=== PATIENT | male | born 1960 | race Caucasian/White ===

== ENCOUNTER 2018-05-12 11:27 | Emergency (ER) | payer SELFPAY ==
[2018-05-12 11:35] VITALS: BP 143/77; PULSE 85; TEMP 98.4; BMI 25.5
[2018-05-12] MEDS ORDERED: FLUORESCEIN NA 1 EA STRIP ONE (11:47)
[2018-05-12] MEDS ORDERED: TETRACAINE 0.5% OPHTH SOLN 2 ML BOTTLE ONE (11:47)
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
== END 2018-05-12 13:04 | disposition home or self-care (01) ==
LOC: JERFT 11:27
DX: H57.11 Ocular pain, right eye (principal); W22.8XXA Striking against or struck by other objects, initial encounter; Y93.89 Activity, other specified; Y92.89 Other specified places as the place of occurrence of the external cause; Y99.8 Other external cause status; I10 Essential (primary) hypertension; E78.1 Pure hyperglyceridemia; Z21 Asymptomatic human immunodeficiency virus [HIV] infection status
CPT/HCPCS: 36415; 80053; 80061; 81003; 83036; 83721; 85025; 86359; 86360; 87536; 99281-25

== ENCOUNTER 2021-10-14 15:04 | Emergency (ER) | payer OTHER ==
[2021-10-14 15:15] VITALS: TEMP 98; BMI 25.4
[2021-10-14] MEDS ORDERED: ACETAMINOPHEN 325 MG TABLET (FP) PO ONE (15:53)
[2021-10-14] MEDS ORDERED: ACETAMINOPHEN 325 MG TABLET (FP) ONE (16:13)
[2021-10-14 16:27] LABS: BASO % 0.6 % (0-2.0); EOS % 1.5 % (0-4.5); HEMATOCRIT 39.8 % (35.4-49); HEMOGLOBIN 13.4 GM/dL (11.7-16.9); LYMPH % 23.1 % (8-40); MCH 31.2 pg (25.7-33.7); MCHC 33.6 g/dl (32.0-35.9); MEAN PLT VOLUME 6.9 fl (7.5-11.1); MONO % 6.7 % (3.8-10.2); NEUT % 68.1 % (42.8-82.8); PLATELET COUNT 480 10^3/uL (134-434); RBC 4.29 M/mm3 (4.00-5.60); RDW 12.8 % (11.9-15.9); WHITE BLOOD COUNT 7.9 K/mm3 (4.0-10.0)
[2021-10-14 16:45] LABS: ALBUMIN 4.6 g/dl (3.4-5.0); BLOOD UREA NITROGEN 14.7 mg/dL (7-18); CALCIUM 10.1 mg/dL (8.5-10.1)
[2021-10-14] MEDS ORDERED: LIDOCAINE HCL 1%, 10 MG/ML (50 mL VIAL) SQ ONE (16:45)
[2021-10-14] MEDS ORDERED: LIDOCAINE HCL 1%, 10 MG/ML (20ML VIAL) ONE (16:46)
[2021-10-14 16:49] LABS: CREATININE 1.1 mg/dL (0.55-1.3)
[2021-10-14 16:51] LABS: BILIRUBIN,TOTAL 0.2 mg/dL (0.2-1); TOT PROT 8.3 g/dl (6.4-8.2)
[2021-10-14 21:18] VITALS: BP 166/77; PULSE 67
== END 2021-10-14 21:08 | disposition short-term general hospital (02) ==
LOC: JER 15:04
DX: S82.202A Unspecified fracture of shaft of left tibia, initial encounter for closed fracture (principal); W18.42XA Slipping, tripping and stumbling without falling due to stepping into hole or opening, initial encounter
CPT/HCPCS: 36415; 73610-TC-LT-FY; 73630-TC-LT; 80053; 85025; 99284-25

== ENCOUNTER 2022-03-01 15:16 | Inpatient (IN) | payer OTHER ==
[2022-03-01 15:21] VITALS: BMI 24.9
[2022-03-01] MEDS ORDERED: MAG HYDROX/AL HYDROX/SIMETH -MYLANTA- ORAL SUSPENSION PO ONE (16:47)
[2022-03-01] MEDS ORDERED: ONDANSETRON 4 MG TABLET PO ONE (16:47)
[2022-03-01] MEDS ORDERED: FAMOTIDINE 20 MG TABLET PO ONE (16:47)
[2022-03-01] MEDS ORDERED: ACETAMINOPHEN 1000 MG/100 ML BAG IVPB ONE (16:48)
[2022-03-01] MEDS ORDERED: FAMOTIDINE 20 MG/50 ML IVPB 20 MG/50 ML MG IVPB ONE ×2 (17:09→17:51)
[2022-03-01] MEDS ORDERED: ONDANSETRON 4 MG/2 ML VIAL IVPUSH ONE (17:10)
[2022-03-01] MEDS ORDERED: LACTATED RINGERS SOLUTION 1000 ML INFUS.BAG IV ONE ×2 (17:19→22:00)
[2022-03-01] MEDS ORDERED: MAG HYDROX/AL HYDROX/SIMETH 30 ML UNIT-DOSE CUP ONE (17:51)
[2022-03-01] MEDS ORDERED: ACETAMINOPHEN INJECTION 100 ML IVPB ONE (17:51)
[2022-03-01] MEDS ORDERED: ONDANSETRON 4 MG/2 ML VIAL ONE (17:51)
[2022-03-01 18:16] LABS: HEMATOCRIT 43.5 % (35.4-49); HEMOGLOBIN 14.8 GM/dL (11.7-16.9); MCH 30.8 pg (25.7-33.7); MCHC 33.9 g/dl (32.0-35.9); MEAN CELL VOLUME 90.7 fl (80-96); MEAN PLT VOLUME 8.5 fl (7.5-11.1); PLATELET COUNT 319 10^3/uL (134-434); RBC 4.79 M/mm3 (4.00-5.60); RDW 12.8 % (11.9-15.9); WHITE BLOOD COUNT 14.9 K/mm3 (4.0-10.0)
[2022-03-01 18:40] LABS: MAGNESIUM 2.2 mg/dL (1.8-2.4)
[2022-03-01 18:44] LABS: PHOSPHOROUS 3.4 mg/dL (2.5-4.9)
[2022-03-01] MEDS ORDERED: morphine SULFATE 4 MG/ML VIAL IVPUSH ONE (19:21)
[2022-03-01] MEDS ORDERED: morphine SULFATE 4 MG/ML VIAL ONE (19:25)
[2022-03-01 20:53] LABS: PH,URINE 7.5 (5.0-8.0); URINE APPEARANCE CLEAR; URINE BILIRUBIN NEGATIVE (NEGATIVE); URINE COLOR YELLOW; URINE GLUCOSE (UA) 3+ (NEGATIVE); URINE KETONE 1+ (NEGATIVE); URINE LEUK ESTERASE NEGATIVE (NEGATIVE); URINE NITRITE NEGATIVE (NEGATIVE); URINE PROTEIN NEGATIVE (NEGATIVE); URINE UROBILINOGEN 0.2 mg/dL (0.2-1.0)
[2022-03-01 21:03] LABS: CALCIUM 9.5 mg/dL (8.5-10.1)
[2022-03-01 21:05] LABS: ALBUMIN 4.2 g/dl (3.4-5.0); BLOOD UREA NITROGEN 15.2 mg/dL (7-18)
[2022-03-01 21:07] LABS: BILIRUBIN,TOTAL 0.8 mg/dL (0.2-1); CREATININE 0.9 mg/dL (0.55-1.3); TOT PROT 7.9 g/dl (6.4-8.2)
[2022-03-01] MEDS ORDERED: morphine CARPU-JECT 8 MG/1 ML DISP.SYRIN IVPUSH ONE (21:59)
[2022-03-02] MEDS ORDERED: ONDANSETRON 4 MG/2 ML VIAL IVPUSH PRN ×2 (01:31→06:47)
[2022-03-02] MEDS ORDERED: LACTATED RINGERS SOLUTION 1,000 ML/1,000 ML INFUS.BAG IV SCH ×2 (01:45→05:55)
[2022-03-02] MEDS ORDERED: morphine SULFATE 4 MG/ML VIAL ONE (01:56)
[2022-03-02] MEDS ORDERED: ACETAMINOPHEN 1000 MG/100 ML BAG IVPB ONE (03:31)
[2022-03-02] MEDS ORDERED: DEXTROSE 50%-WATER - 25 GM/50 ML VIAL IVPUSH PRN ×3 (04:23→22:30)
[2022-03-02] MEDS ORDERED: INSULIN REGULAR 100 UNITS in SODIUM CHLORIDE 99 ML IVPB SCH ×6 (04:30→23:06)
[2022-03-02 06:52] LABS: BASO % 0.2 % (0-2.0); HEMATOCRIT 41.5 % (35.4-49); MCH 30.6 pg (25.7-33.7); MCHC 33.6 g/dl (32.0-35.9); MEAN PLT VOLUME 8.6 fl (7.5-11.1); MONO % 7.4 % (3.8-10.2); NEUT % 70.4 % (42.8-82.8); PLATELET COUNT 305 10^3/uL (134-434); RBC 4.56 M/mm3 (4.00-5.60); RDW 13.3 % (11.9-15.9); WHITE BLOOD COUNT 7.2 K/mm3 (4.0-10.0)
[2022-03-02] MEDS ORDERED: INSULIN SLIDING SCALE (NOVOLOG) 1 VIAL SQ SCH (07:00)
[2022-03-02 07:09] LABS: CALCIUM 8.6 mg/dL (8.5-10.1)
[2022-03-02 07:10] LABS: ALBUMIN 3.7 g/dl (3.4-5.0); BLOOD UREA NITROGEN 14.4 mg/dL (7-18); MAGNESIUM 2.2 mg/dL (1.8-2.4)
[2022-03-02 07:13] LABS: CREATININE 1.1 mg/dL (0.55-1.3); PHOSPHOROUS 4.1 mg/dL (2.5-4.9)
[2022-03-02 07:14] LABS: BILIRUBIN,TOTAL 0.8 mg/dL (0.2-1); TOT PROT 7.2 g/dl (6.4-8.2)
[2022-03-02] MEDS ORDERED: ACETAMINOPHEN 1000 MG/100 ML BAG IVPB PRN (09:30)
[2022-03-02] MEDS: ENOXAPARIN NA (PORCINE) 40 MG/0.4 ML DISP.SYRIN SQ SCH (09:53)
[2022-03-02] MEDS: ACETAMINOPHEN 1000 MG/100 ML BAG IVPB PRN ×3 (09:53→22:31)
[2022-03-02] MEDS ORDERED: EMTRICITAB/RILPIVIRI/TENOF ALA (ODEFSEY) TABLET PO SCH (10:00)
[2022-03-02] MEDS ORDERED: ENOXAPARIN NA (PORCINE) 40 MG/0.4 ML DISP.SYRIN SQ SCH (10:00)
[2022-03-02] MEDS ORDERED: MUPIROCIN 2% TOPICAL OINTMENT FOR DECOLONIZATION NS SCH (10:00)
[2022-03-02] MEDS: LOSARTAN POTASSIUM 50 MG TABLET PO SCH (10:19)
[2022-03-02] MEDS: DEXTROSE 5%-LACTATED RINGERS 1,000 ML IV SCH ×2 (11:54→21:00)
[2022-03-02] MEDS: MEROPENEM 1 GM in DEXTROSE 5%-WATER 100 ML IVPB SCH ×2 (11:54→17:16)
[2022-03-02 16:04] LABS: ALBUMIN 3.2 g/dl (3.4-5.0); CALCIUM 8.8 mg/dL (8.5-10.1)
[2022-03-02 16:09] LABS: BILIRUBIN,TOTAL 0.6 mg/dL (0.2-1)
[2022-03-02 16:10] LABS: TOT PROT 6.2 g/dl (6.4-8.2)
[2022-03-02] MEDS: GEMFIBROZIL 600 MG TABLET (FP) PO SCH (16:43)
[2022-03-02] MEDS: INSULIN REGULAR 100 UNITS in SODIUM CHLORIDE 99 ML IVPB SCH ×2 (21:10→22:10)
[2022-03-02] MEDS: OMEGA-3 ACID ETHYL ESTERS (FATTY-ACIDS) 1 GM CAPSULE (FP) PO SCH (21:31)
[2022-03-02] MEDS: MUPIROCIN 2% TOPICAL OINTMENT FOR DECOLONIZATION NS SCH (21:31)
[2022-03-02] MEDS: ATORVASTATIN CA 40 MG TABLET (FP) PO SCH (21:31)
[2022-03-02] MEDS: CHLORHEXIDINE GLUCONATE 4% CLEANSER FOR DECOLONIZATION TP SCH (21:31)
[2022-03-02] MEDS ORDERED: CHLORHEXIDINE GLUCONATE 4% CLEANSER FOR DECOLONIZATION TP SCH (22:00)
[2022-03-02] MEDS ORDERED: ATORVASTATIN CA 10 MG TABLET (FP) PO SCH (22:00)
[2022-03-03] MEDS: MEROPENEM 1 GM in DEXTROSE 5%-WATER 100 ML IVPB SCH ×3 (01:56→17:01)
[2022-03-03] MEDS: DEXTROSE 5%-LACTATED RINGERS 1,000 ML IV SCH ×2 (02:00→06:15)
[2022-03-03] MEDS: GEMFIBROZIL 600 MG TABLET (FP) PO SCH ×2 (06:04→17:01)
[2022-03-03] MEDS: MUPIROCIN 2% TOPICAL OINTMENT FOR DECOLONIZATION NS SCH ×3 (07:37→21:08)
[2022-03-03 07:42] LABS: BASO % 0.3 % (0-2.0); EOS % 2.4 % (0-4.5); HEMATOCRIT 34.8 % (35.4-49); HEMOGLOBIN 11.9 GM/dL (11.7-16.9); LYMPH % 12.2 % (8-40); MCHC 34.1 g/dl (32.0-35.9); MEAN PLT VOLUME 8.5 fl (7.5-11.1); MONO % 7.5 % (3.8-10.2); NEUT % 77.6 % (42.8-82.8); PLATELET COUNT 232 10^3/uL (134-434); RBC 3.83 M/mm3 (4.00-5.60); RDW 13.1 % (11.9-15.9); WHITE BLOOD COUNT 9.6 K/mm3 (4.0-10.0)
[2022-03-03 08:02] LABS: ALBUMIN 2.7 g/dl (3.4-5.0); MAGNESIUM 2.1 mg/dL (1.8-2.4)
[2022-03-03 08:05] LABS: CREATININE 0.9 mg/dL (0.55-1.3); PHOSPHOROUS 1.7 mg/dL (2.5-4.9)
[2022-03-03 08:07] LABS: BILIRUBIN,TOTAL 0.4 mg/dL (0.2-1); TOT PROT 5.6 g/dl (6.4-8.2)
[2022-03-03] MEDS ORDERED: NAPH,MB-DB/K PH,MBDB POWDER PACKET PO ONE (08:57)
[2022-03-03] MEDS ORDERED: ACETAMINOPHEN 1000 MG/100 ML BAG IVPB PRN (10:28)
[2022-03-03] MEDS: LOSARTAN POTASSIUM 50 MG TABLET PO SCH (10:37)
[2022-03-03] MEDS: OMEGA-3 ACID ETHYL ESTERS (FATTY-ACIDS) 1 GM CAPSULE (FP) PO SCH ×2 (10:37→21:07)
[2022-03-03] MEDS: ENOXAPARIN NA (PORCINE) 40 MG/0.4 ML DISP.SYRIN SQ SCH (10:37)
[2022-03-03] MEDS ORDERED: ACETAMINOPHEN 325 MG TABLET (FP) PO PRN (11:22)
[2022-03-03] MEDS: ACETAMINOPHEN 325 MG TABLET (FP) PO PRN (18:06)
[2022-03-03] MEDS: ATORVASTATIN CA 40 MG TABLET (FP) PO SCH (21:07)
[2022-03-03] MEDS: CHLORHEXIDINE GLUCONATE 4% CLEANSER FOR DECOLONIZATION TP SCH (21:07)
[2022-03-04] MEDS ORDERED: ONDANSETRON 4 MG/2 ML VIAL IVPUSH PRN (00:03)
[2022-03-04] MEDS ORDERED: DEXTROSE 50%-WATER - 25 GM/50 ML VIAL IVPUSH PRN (00:03)
[2022-03-04] MEDS: MEROPENEM 1 GM in DEXTROSE 5%-WATER 100 ML IVPB SCH ×3 (02:02→17:06)
[2022-03-04] MEDS: GEMFIBROZIL 600 MG TABLET (FP) PO SCH ×2 (07:50→17:06)
[2022-03-04 08:58] LABS: BASO % 0.2 % (0-2.0); EOS % 3.1 % (0-4.5); HEMATOCRIT 37.7 % (35.4-49); HEMOGLOBIN 12.4 GM/dL (11.7-16.9); LYMPH % 15.6 % (8-40); MCH 30.6 pg (25.7-33.7); MEAN CELL VOLUME 92.6 fl (80-96); MEAN PLT VOLUME 8.2 fl (7.5-11.1); MONO % 5.6 % (3.8-10.2); NEUT % 75.5 % (42.8-82.8); PLATELET COUNT 289 10^3/uL (134-434); RBC 4.06 M/mm3 (4.00-5.60); RDW 13.2 % (11.9-15.9); WHITE BLOOD COUNT 10.9 K/mm3 (4.0-10.0)
[2022-03-04 09:28] LABS: CALCIUM 8.9 mg/dL (8.5-10.1)
[2022-03-04 09:29] LABS: BLOOD UREA NITROGEN 7.8 mg/dL (7-18); MAGNESIUM 2.3 mg/dL (1.8-2.4)
[2022-03-04 09:31] LABS: PHOSPHOROUS 2.6 mg/dL (2.5-4.9)
[2022-03-04 09:32] LABS: CREATININE 0.9 mg/dL (0.55-1.3)
[2022-03-04 09:33] LABS: BILIRUBIN,TOTAL 0.5 mg/dL (0.2-1)
[2022-03-04] MEDS: LOSARTAN POTASSIUM 50 MG TABLET PO SCH (09:35)
[2022-03-04] MEDS: ENOXAPARIN NA (PORCINE) 40 MG/0.4 ML DISP.SYRIN SQ SCH (09:35)
[2022-03-04] MEDS: OMEGA-3 ACID ETHYL ESTERS (FATTY-ACIDS) 1 GM CAPSULE (FP) PO SCH ×2 (09:35→21:18)
[2022-03-04] MEDS: POLYETHYLENE GLYCOL (HEALTHYLAX) 3350 17 GM PACKET PO SCH ×2 (10:54→21:18)
[2022-03-04] MEDS: INSULIN SLIDING SCALE (NOVOLOG) 1 VIAL SQ SCH (21:18)
[2022-03-04] MEDS: ATORVASTATIN CA 40 MG TABLET (FP) PO SCH (21:18)
[2022-03-04] MEDS: ACETAMINOPHEN 325 MG TABLET (FP) PO PRN (22:35)
[2022-03-05] MEDS: MEROPENEM 1 GM in DEXTROSE 5%-WATER 100 ML IVPB SCH ×2 (02:06→10:27)
[2022-03-05] MEDS: GEMFIBROZIL 600 MG TABLET (FP) PO SCH ×2 (06:23→17:37)
[2022-03-05] MEDS: INSULIN SLIDING SCALE (NOVOLOG) 1 VIAL SQ SCH ×4 (06:23→21:59)
[2022-03-05 09:25] LABS: BASO % 0.3 % (0-2.0); EOS % 3.2 % (0-4.5); HEMATOCRIT 34.9 % (35.4-49); HEMOGLOBIN 11.4 GM/dL (11.7-16.9); LYMPH % 12.8 % (8-40); MCH 30.3 pg (25.7-33.7); MCHC 32.7 g/dl (32.0-35.9); MEAN CELL VOLUME 92.8 fl (80-96); MEAN PLT VOLUME 8.3 fl (7.5-11.1); MONO % 5.3 % (3.8-10.2); NEUT % 78.4 % (42.8-82.8); PLATELET COUNT 290 10^3/uL (134-434); RBC 3.76 M/mm3 (4.00-5.60); RDW 13.2 % (11.9-15.9); WHITE BLOOD COUNT 10.3 K/mm3 (4.0-10.0)
[2022-03-05 10:07] LABS: CALCIUM 8.6 mg/dL (8.5-10.1); MAGNESIUM 2.3 mg/dL (1.8-2.4)
[2022-03-05 10:08] LABS: ALBUMIN 2.8 g/dl (3.4-5.0); BLOOD UREA NITROGEN 11.7 mg/dL (7-18)
[2022-03-05 10:09] LABS: CREATININE 0.9 mg/dL (0.55-1.3)
[2022-03-05 10:11] LABS: TOT PROT 6.4 g/dl (6.4-8.2)
[2022-03-05 10:13] LABS: BILIRUBIN,TOTAL 0.3 mg/dL (0.2-1)
[2022-03-05] MEDS: LOSARTAN POTASSIUM 50 MG TABLET PO SCH (10:28)
[2022-03-05] MEDS: ENOXAPARIN NA (PORCINE) 40 MG/0.4 ML DISP.SYRIN SQ SCH (10:29)
[2022-03-05] MEDS: POLYETHYLENE GLYCOL (HEALTHYLAX) 3350 17 GM PACKET PO SCH ×2 (10:29→21:50)
[2022-03-05] MEDS: OMEGA-3 ACID ETHYL ESTERS (FATTY-ACIDS) 1 GM CAPSULE (FP) PO SCH ×2 (10:29→21:51)
[2022-03-05] MEDS: ATORVASTATIN CA 40 MG TABLET (FP) PO SCH (21:51)
[2022-03-06] MEDS: GEMFIBROZIL 600 MG TABLET (FP) PO SCH (06:21)
[2022-03-06] MEDS: INSULIN SLIDING SCALE (NOVOLOG) 1 VIAL SQ SCH ×2 (06:21→11:07)
[2022-03-06 08:07] LABS: BASO % 0.4 % (0-2.0); EOS % 3.1 % (0-4.5); HEMATOCRIT 38.6 % (35.4-49); HEMOGLOBIN 12.7 GM/dL (11.7-16.9); LYMPH % 14.9 % (8-40); MCH 30.2 pg (25.7-33.7); MEAN CELL VOLUME 91.6 fl (80-96); MEAN PLT VOLUME 7.6 fl (7.5-11.1); MONO % 6.2 % (3.8-10.2); NEUT % 75.4 % (42.8-82.8); PLATELET COUNT 379 10^3/uL (134-434); RBC 4.22 M/mm3 (4.00-5.60); RDW 13.2 % (11.9-15.9); WHITE BLOOD COUNT 11.6 K/mm3 (4.0-10.0)
[2022-03-06 08:18] LABS: CALCIUM 9.2 mg/dL (8.5-10.1)
[2022-03-06 08:19] LABS: ALBUMIN 3.2 g/dl (3.4-5.0); MAGNESIUM 2.3 mg/dL (1.8-2.4)
[2022-03-06 08:22] LABS: CREATININE 0.9 mg/dL (0.55-1.3)
[2022-03-06 08:23] LABS: TOT PROT 7.6 g/dl (6.4-8.2)
[2022-03-06 08:24] LABS: BILIRUBIN,TOTAL 0.4 mg/dL (0.2-1)
[2022-03-06] MEDS: LOSARTAN POTASSIUM 50 MG TABLET PO SCH (09:36)
[2022-03-06] MEDS: POLYETHYLENE GLYCOL (HEALTHYLAX) 3350 17 GM PACKET PO SCH (09:36)
[2022-03-06] MEDS: ENOXAPARIN NA (PORCINE) 40 MG/0.4 ML DISP.SYRIN SQ SCH (09:36)
[2022-03-06] MEDS: OMEGA-3 ACID ETHYL ESTERS (FATTY-ACIDS) 1 GM CAPSULE (FP) PO SCH (09:36)
[2022-03-06 14:33] VITALS: BP 123/80; PULSE 77; RESP 18; TEMP 99.4
== END 2022-03-06 17:00 | disposition home or self-care (01) | DRG 282 ==
LOC: JER 15:16 → JERBED 22:14 → JICU 03-02 06:42 → J8W 03-03 21:22
PROVIDERS: ADMIT Hospitalist; ATTEND Nurse Practitioner Acute Care
DX: K85.90 Acute pancreatitis without necrosis or infection, unspecified (principal); B20 Human immunodeficiency virus [HIV] disease; E11.65 Type 2 diabetes mellitus with hyperglycemia; D72.829 Elevated white blood cell count, unspecified; E78.1 Pure hyperglyceridemia; E78.5 Hyperlipidemia, unspecified; I10 Essential (primary) hypertension; K59.00 Constipation, unspecified
CPT/HCPCS: 0241U-QW; 36415; 74177-TC; 80053; 81003; 82150; 82962; 83036; 83605; 83690; 83735; 84100; 84478; 84484; 85025; 85027; 87040; 87086; 93005; 93010; 99291; Q9967